=== PATIENT | male | born 1990 | race Two or more races ===

== ENCOUNTER 2023-06-26 15:12 | Emergency (ER) | payer MEDICAID, OTHER ==
[2023-06-26] MEDS ORDERED: CEPH500C PO (15:59)
[2023-06-26] MEDS ORDERED: IBUP-1456 PO (15:59)
[2023-06-26] MEDS ORDERED: BACDST PO (15:59)
[2023-06-26 16:12] VITALS: BP 146/98; PULSE 83; RESP 16; TEMP 98; O2SAT 96
== END 2023-06-26 16:14 | disposition home or self-care (01) ==
LOC: ER 15:12
DX: L73.9 Follicular disorder, unspecified (principal); E66.01 Morbid (severe) obesity due to excess calories; Z88.6 Allergy status to analgesic agent

== ENCOUNTER 2024-03-13 17:11 | Emergency (ER) | payer MEDICAID, OTHER ==
[~2024-03-13] VITALS: Ht 177.8 cm; Wt 135.8 kg
[~2024-03-13 17:11] MED LIST: BACDST PO; CEPH500C PO; IBUP-1456 PO
[2024-03-13 18:42] VITALS: BP 123/81; PULSE 67; RESP 18; TEMP 98.3; O2SAT 97
[2024-03-13] MEDS ORDERED: ACYC400T16 PO (19:54)
[2024-03-13] MEDS ORDERED: IBUP-1456 PO (19:54)
[2024-03-13] MEDS: KETOROLAC TROMETH 60MG/2ML VIAL IM ONE (20:07)
== END 2024-03-13 20:20 | disposition home or self-care (01) ==
LOC: ER 17:11
DX: B02.9 Zoster without complications (principal); M54.6 Pain in thoracic spine
CPT/HCPCS: 96372; 99283; J1885